=== PATIENT | male | born 1960 | race African-American/Black ===

== ENCOUNTER 2020-09-23 07:09 | Emergency (ER) | payer MEDICARE, MEDICAID ==
[~2020-09-23] VITALS: Ht 177.8 cm; Wt 75.0 kg
[2020-09-23 07:10] VITALS: TEMP 98.1
[2020-09-23 07:58] LABS: PH 5 (5-8); SQUAMOUS EPITHELIAL 0-2 /hpf; URINE APPEARANCE Clear; URINE BACTERIA None Seen /hpf; URINE BILIRUBIN Negative (NEGATIVE); URINE BLOOD Negative (NEGATIVE); URINE COLOR Yellow; URINE GLUCOSE Negative (NEGATIVE); URINE KETONE Negative (NEGATIVE); URINE LEUKOCYTE ESTERASE Negative (NEGATIVE); URINE NITRATE Negative (NEGATIVE); URINE PROTEIN(semi-quant) 1+ (NEGATIVE); URINE RBC 0-2 /hpf; URINE UROBILINOGEN Negative (NEGATIVE)
[2020-09-23 08:19] LABS: BASO % 0.4 % (0.0-2.0); EOS # 0.1 (0.0-0.7); EOS % 0.9 % (0-4.0); LYMPH % 38.9 % (20.0-51.0); MEAN CELL VOLUME 89 fl (80.0-100.0); MEAN CORPUSCULAR HEMOGLOBIN 29 pg (27.0-31.0); MEAN CORPUSCULAR HGB CONC 33 g/dl (33.0-37.0); MEAN PLATELET VOLUME 10.6 fl (7.4-10.4); MONO # 0.6 (0.1-0.6); MONO % 7.4 % (1.7-9.3); PLATELET COUNT 279 K/mm3 (130-400); RED BLOOD COUNT 3.81 M/mm3 (4.20-5.60); REDCELL DISTRIBUTION WIDTH-CV 14.3 % (11.5-14.5)
[2020-09-23 08:19] LABS: COLLECTION METHOD CLEAN CATCH
[2020-09-23 08:25] LABS: HEMATOCRIT 33.7 % (42.0-52.0)
[2020-09-23 08:29] LABS: ALANINE AMINOTRANSFERASE 25 U/L (4-49); ALKALINE PHOSPHATASE 76 U/L (50-136); ANION GAP 9 mmol/L (7-16); AST,SGOT 43 U/L (15-37); BILIRUBIN,TOTAL 0.8 mg/dL (0.0-1.0); BLOOD UREA NITROGEN 26 mg/dL (9-20); CALCIUM 9.8 mg/dL (8.4-10.2); CARBON DIOXIDE 27 mmol/L (22-30); CHLORIDE 100 mmol/L (98-107); CREATININE, serum 0.66 (0.66-1.25); GLUCOSE 177 mg/dL (74-106); LIPASE 54 U/L (23-300); POTASSIUM 4.2 mmol/L (3.4-5.0); SODIUM 136 mmol/L (137-145); TOTAL PROTEIN 7.7 gm/dL (6.4-8.2)
[2020-09-23 08:44] LABS: TROPONIN-I < 0.012 ng/mL (0.000-0.035)
[2020-09-23] MEDS ORDERED: NYSTATIN OR100 MU/ML PO (09:19)
[2020-09-23 09:41] VITALS: BP 129/93; PULSE 100
== END 2020-09-23 09:41 | disposition home or self-care (01) ==
LOC: COL.ER 07:09
PROVIDERS: Emergency Medicine
DX: B37.0 Candidal stomatitis (principal); R11.10 Vomiting, unspecified; R19.7 Diarrhea, unspecified

== ENCOUNTER 2020-12-23 16:54 | Emergency (ER) | payer MEDICARE, MEDICAID ==
[~2020-12-23] VITALS: Ht 172.7 cm; Wt 61.4 kg
[~2020-12-23 16:54] MED LIST: NYSTATIN OR100 MU/ML PO
[2020-12-23 16:56] VITALS: TEMP 103.2
[2020-12-23 17:37] LABS: HEMATOCRIT 38.7 % (42.0-52.0); HEMOGLOBIN 12.5 g/dl (13.5-18.0); MEAN CELL VOLUME 86 fl (80.0-100.0); MEAN CORPUSCULAR HEMOGLOBIN 28 pg (27.0-31.0); MEAN CORPUSCULAR HGB CONC 32 g/dl (33.0-37.0); MEAN PLATELET VOLUME 10.6 fl (7.4-10.4); PLATELET COUNT 287 K/mm3 (130-400); RED BLOOD COUNT 4.49 M/mm3 (4.20-5.60); REDCELL DISTRIBUTION WIDTH-CV 13.6 % (11.5-14.5)
[2020-12-23 17:44] LABS: ALBUMIN 4.1 gm/dL (3.5-5.0); BILIRUBIN,TOTAL 1.5 mg/dL (0.0-1.0); CALCIUM 10.3 mg/dL (8.4-10.2); CREATININE, serum 1.74 (0.66-1.25); POTASSIUM 4.3 mmol/L (3.4-5.0); TOTAL PROTEIN 8.5 gm/dL (6.4-8.2)
[2020-12-23 17:55] LABS: TROPONIN-I 0.017 ng/mL (0.000-0.035)
[2020-12-23 17:59] LABS: BAND 19 % (0-10); HYPOCHROMIA 1+; LYMPHOCYTE 28 % (20.0-51.0); METAMYELOCYTE 4 % (0-0); MYELOCYTE 3 % (0-0); NEUTROPHILS 38 % (42.0-75.2); NUCLEATED RED BLOOD CELL 1 (0-6); PLATELET ESTIMATE NORMAL (NORMAL); TOXIC GRANULATION PRESENT
[2020-12-23 19:07] LABS: ARTERIAL BLD GAS O2 SATURATION 99.4 % (92-100); ARTERIAL BLD GAS TCO2 CT 20.8; ARTERIAL BLOOD GAS BASE EXCESS -1.6 (-2-2); ARTERIAL BLOOD GAS PCO2 25.5 mmHg (35-45); ARTERIAL BLOOD GAS pH 7.51 (7.35-7.45)
[2020-12-23 19:08] LABS: ARTERIAL BLOOD GAS PO2 175.2 mmHg (80-100)
[2020-12-23 19:43] LABS: COLLECTION METHOD CATHETER
[2020-12-23 19:59] LABS: MUCOUS Present /lpf; PH 5 (5-8); SQUAMOUS EPITHELIAL None Seen /hpf; URINE APPEARANCE Turbid; URINE BACTERIA None Seen /hpf; URINE BILIRUBIN Negative (NEGATIVE); URINE BLOOD 1+ (NEGATIVE); URINE COLOR Yellow; URINE GLUCOSE Negative (NEGATIVE); URINE KETONE Negative (NEGATIVE); URINE LEUKOCYTE ESTERASE 1+ (NEGATIVE); URINE NITRATE Negative (NEGATIVE); URINE PROTEIN(semi-quant) 2+ (NEGATIVE)
[2020-12-23 20:51] LABS: INR 1.7 (0.8-3.0); PROTHROMBIN TIME 19.1 SECONDS (9.7-12.8)
[2020-12-23 21:02] LABS: SALICYLATE < 1.0 mg/dL; TROPONIN-I 0.028 ng/mL (0.000-0.035)
--- NOTE | 2020-12-23 21:22 | NUR ---
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 Will start a maintenance dose of 1gm q24h. Pt at risk for not following population based kinetics 2/2 PMH. Will follow renal function, micro, and treatment plan for need to adjust therapy. Thank you for this dosing consult!
[2020-12-23 22:29] VITALS: BP 124/77; PULSE 136
[2021-01-03 09:15] LABS: ARTERIAL BLD GAS TCO2 CT 22.6; ARTERIAL BLOOD GAS BASE EXCESS -3.7 (-2-2); ARTERIAL BLOOD GAS HCO3 21.4 meq/L (22-26); ARTERIAL BLOOD GAS PCO2 38.7 mmHg (35-45); ARTERIAL BLOOD GAS pH 7.36 (7.35-7.45)
[2021-01-03 09:18] LABS: ARTERIAL BLOOD GAS PO2 27.3 mmHg (80-100)
== END 2020-12-23 22:43 | disposition short-term general hospital (02) ==
LOC: COL.ER 16:54
PROVIDERS: Nurse Practitioner; Nurse Practitioner Family; Personal Emergency Response Attendant
DX: J18.9 Pneumonia, unspecified organism (principal); I50.9 Heart failure, unspecified; E87.70 Fluid overload, unspecified; A41.9 Sepsis, unspecified organism; Z86.73 Personal history of transient ischemic attack (TIA), and cerebral infarction without residual deficits; Z20.822 Contact with and (suspected) exposure to COVID-19
CPT/HCPCS: 99223; J0456; J0692; J0696; J3370; J7030; J7040; J7050; J7060